=== PATIENT | female | born 1995 ===

== ENCOUNTER 2020-07-11 21:07 | Emergency (ER) | payer OTHER ==
[~2020-07-11] VITALS: Ht 157.5 cm; Wt 89.4 kg
[2020-07-12] MEDS ORDERED: VISTARIL50 MG PO (03:11)
[2020-07-12] MEDS ORDERED: ACETAMINOPHEN500 M1 PO (03:13)
[2020-07-12] MEDS ORDERED: VITAMIN C WIT1000 MG PO (03:13)
== END 2020-07-12 03:28 | disposition home or self-care (01) ==
LOC: ER 21:07
DX: R53.1 Weakness (principal); R40.0 Somnolence; F12.980 Cannabis use, unspecified with anxiety disorder; E86.0 Dehydration; A90 Dengue fever [classical dengue]